=== PATIENT | male | born 1945 | race Caucasian/White ===

== ENCOUNTER 2022-03-25 08:02 | Inpatient (IN) | payer MEDICARE, BC ==
[2022-03-19 14:47] LABS: BASOPHILS % (AUTO) 0.6 % (0-1); EOSINOPHILS # (AUTO) 0.2 X10'3 (0-0.9); EOSINOPHILS % (AUTO) 2.8 % (0-6); LYMPHOCYTES # (AUTO) 1.8 X10'3 (1.1-4.8); LYMPHOCYTES % (AUTO) 24.8 % (21-51); MEAN CORPUSCULAR HEMOGLOBIN 31.5 PG (27.0-31.0); MEAN CORPUSCULAR HGB CONC 34.1 g/dL (33.0-36.5); MEAN CORPUSCULAR VOLUME 92.4 FL (78-98); MEAN PLATELET VOLUME 8.8 FL (7.4-10.4); MONOCYTES # (AUTO) 0.9 X10'3 (0-0.9); NEUTROPHILS # (AUTO) 4.4 X10'3 (1.8-7.7); NEUTROPHILS % (AUTO) 59.8 % (42-75); PRE OP HEMATOCRIT 45.5 % (42.0-52.0); PRE OP HEMOGLOBIN 15.5 g/dL (14.0-17.9); PRE OP PLATELET COUNT 237 X10'3 (140-440); RED BLOOD COUNT 4.92 X10'6 (4.70-6.10); RED CELL DISTRIBUTION WIDTH 13.1 % (11.5-14.5)
[2022-03-19 15:11] LABS: ALBUMIN 4.1 G/DL (3.4-5.0); ALBUMIN/GLOBULIN RATIO 1.1 (1.1-1.5); ALKALINE PHOSPHATASE 71 IU/L (46-116); BLOOD UREA NITROGEN 20 MG/DL (7-18); BUN/CREATININE RATIO 17.2 (5.4-32.0); CALCIUM 10.1 MG/DL (8.5-10.1); CHLORIDE 104 MMOL/L (99-107); CREATININE 1.16 MG/DL (0.60-1.10); PRE OP ALT 19 U/L (30-65); PRE OP ANION GAP 9 (8-16); PRE OP AST 13 U/L (10-37); PRE OP BILIRUB, TOTAL 0.6 MG/DL (0.0-1.0); PRE OP GLUCOSE 145 MG/DL (70-104); PRE OP POTASSIUM 4.2 MMOL/L (3.4-5.1); PRE OP SODIUM 142 MMOL/L (135-145); TOTAL CARBON DIOXIDE 28.7 MMOL/L (24-32); TOTAL PROTEIN 7.7 G/DL (6.4-8.2); eGFR 62 ML/MIN
[~2022-03-25] VITALS: Ht 180.3 cm; Wt 112.0 kg
[~2022-03-25 08:02] MED LIST: AMLO2.5T2 PO; ASPI-612 PO; ATOR40TA PO; CARV-50 PO; CHOL50004 PO; CITA20TA28 PO; CYAN500T71 PO; DUTA1CPM4 PO; ESOM20CA PO; LOPE2CAP PO; LOSA25TA96 PO; TRAM50TA2 PO
[2022-03-26] VITALS (13 sets, daily range): BP systolic 104–167; BP diastolic 48–105
[2022-03-26] MEDS ORDERED: ringers solution, lacted 1,000 ML IV SCH ×2 (05:00→08:50)
[2022-03-26] MEDS ORDERED: ceFAZolin inj. 2,000 MG in dextrose 5%-water 100 ML IV ONE (05:30)
[2022-03-26] MEDS ORDERED: vancomycin 1,500 MG in NS 300ml IV soln IV ONE (05:30)
[2022-03-26] MEDS ORDERED: DOCUMENT DATE & TIME OF BETA-BLOCKER PO ONE (05:30)
[2022-03-26] MEDS ORDERED: tranexamic acid 650mg tablet PO ONE (05:30)
--- NOTE | 2022-03-26 06:00 | NUR ---
TOTAL JOINT PROTOCOL CHARTING. CSM'S WNL TO ALL EXT WITH THE EXCEPTION OF SLIGHT LEFT UPPER EXT WEAKER THAN RIGHT R/T LEFT SHOULDER OA. LEFT RADIAL PULSE STRONG MARKED. DECOLONIZATION PROCESS COMPLETED X5 DAYS (SHOWERS AND OINTMENT). PT STATES HE READ THE BOOKLET BUT DID NOT WATCH THE VIDEO R/T HE HAS HAD 3 PREVIOUS TOTAL JOINTS AND DIDN'T FEEL HE NEEDED TO WATCH IT. Addendum: 03/26/22 at 0712 by Lynette Betancur RN Amended: Links added.
[2022-03-26] MEDS ORDERED: famotidine 20mg tablet PO ONE (06:20)
[2022-03-26] MEDS ORDERED: labetalol 20mg/4ml (5mg/ml) syringe IV PRN (08:50)
[2022-03-26] MEDS ORDERED: morphine 4 MG/ML inj SYRINge IV PRN ×2 (08:50)
[2022-03-26] MEDS ORDERED: ondansetron/PF 4mg/2ml inj IV PRN ×2 (08:50→18:30)
[2022-03-26] MEDS ORDERED: ROPIVAcaine 0.2% (10 MG/5 ML) BOLUS INJECTION INTERSCALE PRN (08:50)
[2022-03-26] MEDS ORDERED: ROPIVAcaine 0.2%/PF PUMP/bolus 545 ML INTERSCALE SCH (08:50)
[2022-03-26] MEDS ORDERED: morphine 2 MG/ML inj. syringe IV PRN ×2 (08:50)
[2022-03-26] MEDS ORDERED: hydrALAZINE 20mg/ml inj. IV PRN (08:50)
[2022-03-26] MEDS ORDERED: ROPIVAcaine 0.5% (5mg/ml) 30ml vial ONE ×2 (09:27→12:03)
[2022-03-26] MEDS ORDERED: midazolam 1 mg/ML 2ml injection ONE (10:56)
[2022-03-26] MEDS ORDERED: fentaNYL/PF 50MCG/1 ML 2ML syringe ONE (10:56)
[2022-03-26] MEDS ORDERED: LIDOcaine 2% (20mg/ml) 5ml vial ONE (10:57)
[2022-03-26] MEDS ORDERED: propofol inj 20 ML IV ONE (10:57)
[2022-03-26] MEDS ORDERED: ondansetron/PF 4mg/2ml inj ONE (10:57)
[2022-03-26] MEDS ORDERED: dexamethasone sod phosphate 10mg/ml inj ONE (11:07)
[2022-03-26] MEDS ORDERED: sevoflurane 250ml liquid IH ONE (11:07)
[2022-03-26] MEDS ORDERED: ATROPINE SULFATE 0.4 MG/ML injection (OR only) ONE (11:59)
[2022-03-26] MEDS ORDERED: ePHEDrine 50MG/ML INJ. ONE (11:59)
[2022-03-26] MEDS ORDERED: ketorolac trometh. 30mg/ml inj. ONE (12:04)
--- NOTE | 2022-03-26 13:15 | NUR ---
Received from OR via , accompanied by Anesthesiologist and report given by Anesthesiolgist. PATIENT A&OX4, VSS. DENIES PAIN,. DRESSING TO LEFT SHOULDER C/D/I SCD ON,. NEUROVASCULAR CHECKS INTACT, CAP REFILL WNL. ICE APPLIED. IV RUNNING LR TO 20 G IV TO RIGHT HAND.
--- NOTE | 2022-03-26 13:55 | NUR ---
PATIENT A&OX4, VSS. DENIES PAIN,. DRESSING TO LEFT SHOULDER C/D/I SCD ON,. NEUROVASCULAR CHECKS INTACT, CAP REFILL WNL. ICE APPLIED. IV RUNNING LR TO 20 G IV TO RIGHT HAND. patient taken to 4015b with all belongings and hooked up to monitors in room and report given to rn who has taken over patient care.
--- NOTE | 2022-03-26 18:20 | NUR ---
Patient in room ORTH[facility] 4023. I have received report from Aisha MALDONADO and had the opportunity to ask questions and assume patient care. Addendum: 03/26/22 at 1906 by Michelle Jim RN Amended: Links added.
[2022-03-26] MEDS ORDERED: bisacodyl 10mg suppository rectal RC PRN (18:30)
[2022-03-26] MEDS ORDERED: acetaminophen 325mg tablet PO PRN (18:30)
[2022-03-26] MEDS ORDERED: loperamide 2mg capsule PO PRN (18:30)
[2022-03-26] MEDS ORDERED: diphenhydrAMINE 25mg capsule PO PRN ×2 (18:30)
[2022-03-26] MEDS ORDERED: HYDROmorphone 1 mg/ml syringe IV PRN (18:30)
[2022-03-26] MEDS ORDERED: oxyCODONE IR 5mg (immed. release) tablet PO PRN ×2 (18:30)
[2022-03-26] MEDS ORDERED: HYDROmorphone inj. 0.5 MG/0.5 ML DISP.SYRIN IV PRN (18:30)
[2022-03-26] MEDS ORDERED: magnesium hydroxide 30ml (MOM) UD suspension PO PRN (18:30)
[2022-03-26] MEDS ORDERED: naloxone 0.4 mg/ml inj IV PRN (18:30)
--- NOTE | 2022-03-26 18:34 | NUR ---
Problems reprioritized. Patient report given, questions answered & plan of care reviewed with Michelle MALDONADO.
--- NOTE | 2022-03-26 19:30 | NUR ---
Pt. sitting up in bed with at bed side, c/o generalized pain including left shoulder pain; encouraged pt. to use on Q- pt. demonstrated understanding by pressing the the on Q pump. Left shoulder with drsg CDI extremity in the sling at this time with lazo wrap and ice pack in palce, pt. able to move fingers freely and sensation present on palpation. Call light within reach and bed in low position. Addendum: 03/27/22 at 1712 by Michelle Jim RN Amended: Links added.
[2022-03-26] MEDS: acetaminophen 325mg tablet PO SCH (19:36)
[2022-03-26] MEDS: potassium cl 20mEq in 1/2 NS 1,000 ML IV SCH (19:53)
[2022-03-26] MEDS ORDERED: carVEDilol 12.5mg tablet PO SCH (20:00)
[2022-03-26] MEDS ORDERED: vancomycin/NS 1 GM ADD-VANTAGE 250 ML IV SCH (20:00)
[2022-03-26] MEDS ORDERED: traMADol 50MG tablet PO SCH (20:00)
[2022-03-26] MEDS ORDERED: non-formulary drug (Aspirin (Aspir 81) 1 TAB) PO SCH (21:00)
[2022-03-26] MEDS ORDERED: tamsulosin 0.4mg capsule PO SCH (21:00)
[2022-03-26] MEDS ORDERED: sennosides 8.6mg tablet PO SCH (21:00)
[2022-03-27] MEDS ORDERED: ceFAZolin/D5W- 1GM premix 50 ML IV SCH
[2022-03-27] MEDS: potassium cl 20mEq in 1/2 NS 1,000 ML IV SCH (03:38)
[2022-03-27] MEDS: acetaminophen 325mg tablet PO SCH (03:49)
--- NOTE | 2022-03-27 05:00 | NUR ---
A nurse reported pt's Iv was dislodges which the nurse discontinued the iv without incident. Addendum: 03/27/22 at 0610 by Michelle Jim RN Amended: Links added.
[2022-03-27 06:00] VITALS: BP 173/95
--- NOTE | 2022-03-27 06:00 | NUR ---
Problems reprioritized. Patient report given, questions answered & plan of care reviewed with Aisha MALDONADO. Addendum: 03/27/22 at 1316 by Michelle Jim RN Amended: Links added.
--- NOTE | 2022-03-27 06:15 | NUR ---
Patient in room ORTH[facility] 4015. I have received report from Michelle MALDONADO and had the opportunity to ask questions and assume patient care.
[2022-03-27 06:29] LABS: BASOPHILS % (AUTO) 0.1 % (0-1); EOSINOPHILS % (AUTO) 0 % (0-6); HEMATOCRIT 42.1 % (42.0-52.0); HEMOGLOBIN 14.4 g/dl (14.0-17.9); LYMPHOCYTES # (AUTO) 0.9 X10'3 (1.1-4.8); MEAN CORPUSCULAR HEMOGLOBIN 31.9 PG (27.0-31.0); MEAN CORPUSCULAR HGB CONC 34.3 g/dL (33.0-36.5); MEAN CORPUSCULAR VOLUME 93.2 FL (78-98); MEAN PLATELET VOLUME 9.1 FL (7.4-10.4); MONOCYTES # (AUTO) 1.1 X10'3 (0-0.9); NEUTROPHILS # (AUTO) 12.3 X10'3 (1.8-7.7); NEUTROPHILS % (AUTO) 85.9 % (42-75); PLATELET COUNT 212 X10'3 (140-440); RED BLOOD COUNT 4.52 X10'6 (4.70-6.10); WHITE BLOOD COUNT 14.3 X10'3 (4.5-11.0)
[2022-03-27 06:38] LABS: ANION GAP 12 (8-16); CHLORIDE 104 MMOL/L (99-107); POTASSIUM 4.1 MMOL/L (3.5-5.1); SODIUM 140 MMOL/L (135-145); TOTAL CARBON DIOXIDE 23.8 MMOL/L (24-32)
[2022-03-27] MEDS ORDERED: TAMSULOSIN HCL PO SCH (08:00)
[2022-03-27] MEDS ORDERED: citalopram 20mg tablet PO SCH (08:00)
[2022-03-27] MEDS ORDERED: DUTASTERIDE PO SCH (08:00)
[2022-03-27] MEDS ORDERED: dutasteride 0.5 MG capsule PO SCH (08:00)
[2022-03-27] MEDS ORDERED: cyanocobalamin 500mcg tablet PO SCH (08:00)
[2022-03-27] MEDS ORDERED: losartan 25mg tablet PO SCH (08:00)
[2022-03-27] MEDS ORDERED: amLODIPine 5mg tablet PO SCH (08:00)
[2022-03-27] MEDS ORDERED: cholecalciferol (vitamin D3) 1,000 unit (25mcg) tablet PO SCH (08:00)
[2022-03-27] MEDS ORDERED: aspirin 325mg tablet PO SCH (08:30)
[2022-03-28] MEDS ORDERED: acetaminophen 325mg tablet PO PRN (18:30)
== END 2022-03-27 07:50 | disposition home or self-care (01) | DRG 483 ==
LOC: PAS IN 03-26 05:43 → ORTHO 4S 03-26 13:55
PROVIDERS: ADMIT Orthopaedic Surgery; ATTEND Orthopaedic Surgery
PROC: 3E0T3BZ Introduction of Anesthetic Agent into Peripheral Nerves and Plexi, Percutaneous Approach (ICD-10-PCS; 2022-03-26)
PROC: 3E0T33Z Introduction of Anti-inflammatory into Peripheral Nerves and Plexi, Percutaneous Approach (ICD-10-PCS; 2022-03-26)
PROC: 0RRK0JZ Replacement of Left Shoulder Joint with Synthetic Substitute, Open Approach (ICD-10-PCS; principal; 2022-03-26 11:07)
DX: M19.012 Primary osteoarthritis, left shoulder (principal); M75.102 Unspecified rotator cuff tear or rupture of left shoulder, not specified as traumatic; F32.A Depression, unspecified; I10 Essential (primary) hypertension; K21.9 Gastro-esophageal reflux disease without esophagitis; Z79.899 Other long term (current) drug therapy; Z79.82 Long term (current) use of aspirin
CPT/HCPCS: 36415; 80051; 80053; 82948; 85025; 87081; 97116; 97161; 97530; A4565; A4618; A7000; C1713; C1776; G0378; J0690; J1100; J1170; J1885; J2250; J2405; J2704; J2795; J3010; J3370; J3480; J3490; J7040; J7060; J7120